=== PATIENT | male | born 1985 | race African-American/Black ===

== ENCOUNTER → 2020-10-29 | Outpatient (CLI) | payer OTHER ==
--- NOTE | 2020-10-29 14:57 | XR ---
EXAMINATION TYPE: XR chest 2V DATE OF EXAM: 10/29/2020 COMPARISON: NONE HISTORY: Spot on his lungs. TECHNIQUE: 2 views FINDINGS: Heart and mediastinum are normal. Lungs are clear. Diaphragm is normal. Bony thorax is inta ct. IMPRESSION: Normal chest
== END | disposition home or self-care (01) ==
LOC: RADXRMAIN 14:24
PROVIDERS: ATTEND Physician Assistant
DX: R06.02 Shortness of breath (principal)
CPT/HCPCS: 71046